=== PATIENT | male | born 1960 | race Caucasian/White ===

== ENCOUNTER 2018-09-11 12:53 | Outpatient (CLI) | payer BC, SELFPAY ==
[2018-09-12 11:15] LABS: PSA, Screening 5.2 ng/ml (0-3.5)
== END 2018-09-11 13:13 ==
PROVIDERS: Visit Provider Nurse Practitioner Gerontology
DX: R97.20 Elevated prostate specific antigen [PSA] (principal); Z12.5 Encounter for screening for malignant neoplasm of prostate
CPT/HCPCS: 36415; 84153

== ENCOUNTER 2019-01-21 08:47 | Outpatient (CLI) | payer BC, SELFPAY ==
[2019-01-22 10:11] LABS: PSA, Diagnostic 5.2 ng/ml (0-3.5)
== END 2019-01-21 09:07 ==
PROVIDERS: Visit Provider Urology
DX: R97.20 Elevated prostate specific antigen [PSA] (principal)
CPT/HCPCS: 36415; 84153